=== PATIENT | female | born 1925 | race American Indian/Alaskan Native ===

== ENCOUNTER 2016-12-17 23:10 | Emergency (ER) | payer MEDICARE, MEDICAID ==
[2016-12-17] MEDS ORDERED: Sodium Chloride 0.9% 10 ML Syringe FLUSH PRN (23:18)
[2016-12-17] MEDS ORDERED: Aspirin 325 MG Tab.EC PO ONE (23:27)
--- NOTE | 2016-12-17 23:36 | EDM.PDOC ---
ED HPI GENERAL MEDICAL PROBLEM - General Chief Complaint: Cardiovascular Problem Stated Complaint: [facility] Time Seen by Provider: 12/17/16 23:17 Source of Information: Reports: Patient, EMS, RN Notes Reviewed - History of Present Illness INITIAL COMMENTS - FREE TEXT/NARRATIVE: 89-year-old female comes in after a 10-15 minute episode of chest discomfort at home earlier this evening. She does have history of type 2 diabetes, hypertension and coronary artery disease. She states she had onset of the pain left anterior chest without radiation. She states she has a "kink" of one of the blood vessels in her heart. She took a baby aspirin and states the pain did go away after about 10 or 15 minutes. She has not been short of breath. No nausea vomiting or diaphoresis. She is resting comfortably pain free at this time. - Related Data Allergies Allergy/AdvReac Type Severity Reaction Status Date / Time Penicillins Allergy Rash Verified 12/17/16 23:19 Home Meds: Home Meds Cholecalciferol (Vitamin D3) [Vitamin D3] 1,000 mg PO DAILY 12/17/16 [History] Insulin Glarg,Human.Rec.Analog [LantUS Solostar] 12/17/16 [History] Losartan [Cozaar] 25 mg PO DAILY 12/17/16 [History] Omeprazole 20 mg PO DAILY 12/17/16 [History] SitaGLIPtin [Januvia] 50 mg PO 12/17/16 [History] metFORMIN [Glucophage] 850 mg PO WITHDINNER 12/17/16 [History] ED ROS GENERAL - Review of Systems Review Of Systems: See Below Constitutional: Denies: Fever, Chills, Diaphoresis HEENT: Reports: No Symptoms Respiratory: Denies: Shortness of Breath, Pleuritic Chest Pain Cardiovascular: Reports: Chest Pain (Gone) GI/Abdominal: Denies: Abdominal Pain, Nausea, Vomiting Musculoskeletal: Denies: Neck Pain, Shoulder Pain, Back Pain, Leg Pain Skin: Reports: No Symptoms Neurological: Reports: No Symptoms ED EXAM, GENERAL - Physical Exam Exam: See Below General Appearance: Alert, No Apparent Distress Throat/Mouth: Normal Inspection, Normal Oropharynx Head: Atraumatic. No: Facial Swelling Neck: Supple, Full Range of Motion, Other (No JVD) Respiratory/Chest: No Respiratory Distress, Lungs Clear, Normal Breath Sounds Cardiovascular: Regular Rate, Rhythm GI/Abdominal: Soft, Non-Tender. No: Guarding Extremities: Normal Inspection. No: Pedal Edema, Leg Pain, Increased Warmth, Redness Neurological: Alert, No Motor/Sensory Deficits Skin Exam: Warm, Dry, Ecchymosis EKG INTERPRETATION EKG Date: 12/17/16 Rhythm: NSR [place]: LAD-left axis deviation P-wave: present QRS: normal ST-T: normal Course - Vital Signs Last Recorded V/S: Last Vital Signs Temp 98.0 F 12/17/16 23:15 Pulse 79 12/17/16 23:49 Resp 18 12/17/16 23:15 BP 201/72 H 12/17/16 23:49 Pulse Ox 98 12/17/16 23:15 - Orders/Labs/Meds Orders: Active Orders 24 hr Category Date Time Status EKG 12 Lead [EKG Documentation Completion] [RC] STAT Care 12/17/16 23:18 Active Peripheral IV Care [RC] . DIRECTED Care 12/17/16 23:19 Active Chest 1V Frontal [CR] Stat Exams 12/17/16 23:18 Taken Sodium Chloride 0.9% [Saline Flush] Med 12/17/16 23:18 Active 10 ml FLUSH ASDIRECTED PRN Peripheral IV Insertion Adult [OM.PC] Stat Oth 12/17/16 23:19 Ordered Medication Orders Sodium Chloride (Saline Flush) 10 ml FLUSH ASDIRECTED PRN PRN Reason: Keep Vein Open Last Admin: 12/17/16 23:49 Dose: 10 ml Labs: Laboratory Tests 12/17/16 12/17/16 12/17/16 Range/Units 23:30 23:30 23:30 WBC 10.09 H (3.98-10.04) K/mm3 RBC 4.46 (3.98-5.22) M/mm3 Hgb 13.0 (11.2-15.7) gm/L Hct 37.9 (34.1-44.9) % MCV 85.0 (79.4-94.8) fl MCH 29.1 (25.6-32.2) pg MCHC 34.3 (32.2-35.5) g/dl RDW Std Deviation 41.5 (36.4-46.3) fL Plt Count 284 (182-369) K/mm3 MPV 9.3 L (9.4-12.3) fl Neut % (Auto) 58.1 (34.0-71.1) % Lymph % (Auto) 29.5 (19.3-51.7) % [place] % (Auto) 8.6 (4.7-12.5) % Eos % (Auto) 3.0 (0.7-5.8) Baso % (Auto) 0.4 (0.1-1.2) % Neut # (Auto) 5.86 (1.56-6.13) K/mm3 Lymph # (Auto) 2.98 (1.18-3.74) K/mm3 [place] # (Auto) 0.87 H (0.24-0.36) K/mm3 Eos # (Auto) 0.30 (0.04-0.36) K/mm3 Baso # (Auto) 0.04 (0.01-0.08) K/mm3 Sodium 129 L (136-145) mEq/L Potassium 4.6 (3.5-5.1) mEq/L Chloride 95 L (98-107) mEq/L Carbon Dioxide 26 (21-32) mEq/L Anion Gap 12.6 (5-15) BUN 17 (7-18) mg/dL Creatinine 0.9 (0.55-1.02) mg/dL Est Cr Clr Drug Dosing 33.52 mL/min Estimated GFR (MDRD) 59 (>60) mL/min BUN/Creatinine Ratio 18.9 H (14-18) Glucose 229 H (83-115) mg/dL Calcium 9.7 (8.5-10.1) mg/dL Total Bilirubin 0.3 (0.2-1.0) mg/dL AST 17 (15-37) U/L ALT 25 (14-59) U/L Alkaline Phosphatase 128 H (46-116) U/L Troponin I < 0.017 (0.00-0.056) ng/mL B-Natriuretic Peptide 96 (0-100) pg/mL Total Protein 7.3 (6.4-8.2) g/dl Albumin 3.3 L (3.4-5.0) g/dl Globulin 4.0 gm/dL Albumin/Globulin Ratio 0.8 L (1-2) 12/18/16 Range/Units 01:30 WBC (3.98-10.04) K/mm3 RBC (3.98-5.22) M/mm3 Hgb (11.2-15.7) gm/L Hct (34.1-44.9) % MCV (79.4-94.8) fl MCH (25.6-32.2) pg MCHC (32.2-35.5) g/dl RDW Std Deviation (36.4-46.3) fL Plt Count (182-369) K/mm3 MPV (9.4-12.3) fl Neut % (Auto) (34.0-71.1) % Lymph % (Auto) (19.3-51.7) % [place] % (Auto) (4.7-12.5) % Eos % (Auto) (0.7-5.8) Baso % (Auto) (0.1-1.2) % Neut # (Auto) (1.56-6.13) K/mm3 Lymph # (Auto) (1.18-3.74) K/mm3 [place] # (Auto) (0.24-0.36) K/mm3 Eos # (Auto) (0.04-0.36) K/mm3 Baso # (Auto) (0.01-0.08) K/mm3 Sodium (136-145) mEq/L Potassium (3.5-5.1) mEq/L Chloride (98-107) mEq/L Carbon Dioxide (21-32) mEq/L Anion Gap (5-15) BUN (7-18) mg/dL Creatinine (0.55-1.02) mg/dL Est Cr Clr Drug Dosing mL/min Estimated GFR (MDRD) (>60) mL/min BUN/Creatinine Ratio (14-18) Glucose (83-115) mg/dL Calcium (8.5-10.1) mg/dL Total Bilirubin (0.2-1.0) mg/dL AST (15-37) U/L ALT (14-59) U/L Alkaline Phosphatase (46-116) U/L Troponin I < 0.017 (0.00-0.056) ng/mL B-Natriuretic Peptide (0-100) pg/mL Total Protein (6.4-8.2) g/dl Albumin (3.4-5.0) g/dl Globulin gm/dL Albumin/Globulin Ratio (1-2) Meds: Medications Generic Name Dose Route Start Last Admin Trade Name Junior PRN Reason Stop Dose Admin Sodium Chloride 10 ml 12/17/16 23:18 12/17/16 23:49 Saline Flush FLUSH 10 ml ASDIRECTED PRN Administration Keep Vein Open Discontinued Medications Generic Name Dose Route Start Last Admin Trade Name Junior PRN Reason Stop Dose Admin Aspirin 325 mg 12/17/16 23:27 12/17/16 23:49 Ecotrin PO 12/17/16 23:28 325 mg NOW ONE Administration Metoprolol Tartrate 50 mg 12/17/16 23:40 12/17/16 23:49 Lopressor PO 12/17/16 23:41 50 mg ONETIME ONE Administration - Re-Assessments/Exams Free Text/Narrative Re-Assessment/Exam: 12/18/16 01:21, patient has been resting comfortably, sinus rhythm, initial labs are good, troponins normal. Due to her living quite a distance from our hospital and what sounds like a cardiac history I am going to do a repeat troponin at this time. Her EKG looked good. Rest x-ray also normal. 12/18/16 02:39. Repeat troponin has come back negative. H. and is sleeping soundly. She continues in sinus rhythm with no ectopy. She is eligible for discharge at this time. However no family member has yet shown up to be with her or to take her home. We will continue to try to contact a daughter that apparently was supposed to be coming here. 12/18/16 05:14. She continues to sleep. No reponse when trying to call family. 12/18/16 07:00 A daughter is on her way but over an hour from Dx[place]. Pt continues to rest pain free, will discharge pt after daughter arrives, discharge instr. as documented. Departure - Departure Time of Disposition: 03:00 Disposition: Home, Self-Care 01 Condition: fair Clinical Impression: Atypical chest pain Instructions: Nonspecific Chest Pain Referrals: PCP,Not In Area [Primary Care Provider] - Forms: ED Department Discharge Additional Instructions: Continue daily aspirin and other medications as prescribed, followup with your regular medical provider in about 3-5 days for recheck. Call for appointment. Return to ED as needed if symptoms worsening in any way - My Orders Last 24 Hours: My Active Orders 12/17/16 23:18 EKG 12 Lead [EKG Documentation Completion] [RC] STAT Chest 1V Frontal [CR] Stat Sodium Chloride 0.9% [Saline Flush] 10 ml FLUSH ASDIRECTED PRN 12/17/16 23:19 Peripheral IV Care [RC] . DIRECTED Peripheral IV Insertion Adult [OM.PC] Stat - Assessment/Plan Last 24 Hours: My Active Orders 12/17/16 23:18 EKG 12 Lead [EKG Documentation Completion] [RC] STAT Chest 1V Frontal [CR] Stat Sodium Chloride 0.9% [Saline Flush] 10 ml FLUSH ASDIRECTED PRN 12/17/16 23:19 Peripheral IV Care [RC] . DIRECTED Peripheral IV Insertion Adult [OM.PC] Stat
[2016-12-17] MEDS ORDERED: Metoprolol Tartrate 50 MG Tab PO ONE (23:40)
[2016-12-18 07:43] VITALS: BP 156/52
--- NOTE | 2016-12-18 09:36 | CR ---
Chest: Portable view of the chest was obtained. Comparison: No previous chest x-ray. Heart size and mediastinum are normal. Lungs are clear. Mild scoliosis is noted within the spine. Previous right shoulder surgery is seen. Impression: 1. Incidental findings. Nothing acute is identified on portable chest x-ray. Diagnostic code #2
== END 2016-12-18 07:40 | disposition home or self-care (01) ==
LOC: JD.ED 23:10
DX: R07.89 Other chest pain (principal); I10 Essential (primary) hypertension; I25.10 Atherosclerotic heart disease of native coronary artery without angina pectoris; E11.9 Type 2 diabetes mellitus without complications; Z79.4 Long term (current) use of insulin; Z79.899 Other long term (current) drug therapy; Z88.0 Allergy status to penicillin
CPT/HCPCS: 36415; 71010; 80053; 83880; 84484; 85025; 93005; 99285; A9270; J7050; 99284

== ENCOUNTER 2016-12-23 15:53 | Inpatient (IN) | payer MEDICARE, MEDICAID ==
--- NOTE | 2016-12-23 16:09 | EDM.PDOC ---
ED HPI GENERAL MEDICAL PROBLEM - General Chief Complaint: Neuro Symptoms/Deficits Stated Complaint: STROKE LIKE SYMPTOMS Time Seen by Provider: 12/23/16 16:01 Source of Information: Reports: Patient, Family History Limitations: Reports: No Limitations - History of Present Illness INITIAL COMMENTS - FREE TEXT/NARRATIVE: The patient was out to eat at [employer] and her daughter was talking to her and she developed left sided facial droop and she could not talk. She was also confused. Her last time known well was 1545 today. Her daughter brought her here in a private vehicle. She came back in a wheelchair. I followed her into the room and the patient was talking now and she had no facial droop that I could tell. Her daughter thought she was still having trouble finding her words. The patient was answering all of my questions. She had a hard time with the date. She denies fever, chills, cough, headache, chest pain, shortness of breath, abdominal pain, nausea, or vomiting. Her daughter says she has had strokes before. Onset: Sudden Duration: Minutes: (Last known well was 1544 today) Severity: Mild Improves with: Reports: None Worsens with: Reports: None Associated Symptoms: Reports: No Other Symptoms - Related Data Allergies Allergy/AdvReac Type Severity Reaction Status Date / Time Penicillins Allergy Rash Verified 12/23/16 16:02 Home Meds: Home Meds Cholecalciferol (Vitamin D3) [Vitamin D3] 1,000 mg PO DAILY 12/17/16 [History] Insulin Glarg,Human.Rec.Analog [LantUS Solostar] 18 unit SQ BEDTIME 12/17/16 [ History] Losartan [Cozaar] 25 mg PO DAILY 12/17/16 [History] Omeprazole 20 mg PO DAILY 12/17/16 [History] SitaGLIPtin [Januvia] 50 mg PO DAILY 12/17/16 [History] metFORMIN [Glucophage] 850 mg PO WITHDINNER 12/17/16 [History] Allopurinol [Zyloprim] 100 mg PO DAILY 12/23/16 [History] Clopidogrel [Plavix] 75 mg PO DAILY 12/23/16 [History] Past Medical History Cardiovascular History: Reports: Hypertension, [place] Neurological History: Reports: CVA Endocrine/Metabolic History: Reports: Diabetes, Type II - Past Surgical History GI Surgical History: Reports: Appendectomy Female Surgical History: Reports: Hysterectomy, Ureteral Stent Other Female Surgeries/Procedures: 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 Social & Family History - Family History Family Medical History: Noncontributory - Tobacco Use Smoking Status *Q: Never Smoker - Recreational Drug Use Recreational Drug Use: No ED ROS GENERAL - Review of Systems Review Of Systems: See Below Constitutional: Reports: No Symptoms HEENT: Reports: No Symptoms Respiratory: Reports: No Symptoms Cardiovascular: Reports: No Symptoms Endocrine: Reports: No Symptoms GI/Abdominal: Reports: No Symptoms : Reports: No Symptoms Musculoskeletal: Reports: No Symptoms Skin: Reports: No Symptoms Neurological: Reports: Confusion, Other (Left sided facial droop and trouble speaking) Psychiatric: Reports: No Symptoms ED EXAM, NEURO - Physical Exam Exam: See Below Exam Limited By: No Limitations General Appearance: Alert, No Apparent Distress Eye Exam: Bilateral Eye: EOMI, PERRL Ears: Normal External Exam Nose: Normal Inspection Throat/Mouth: Normal Inspection Head Exam: Atraumatic, Normocephalic Neck: Normal Inspection Respiratory/Chest: No Respiratory Distress, Lungs Clear, Normal Breath Sounds Cardiovascular: Regular Rate, Rhythm, No Edema, No Murmur GI/Abdominal: Soft, Non-Tender, No Organomegaly, No Mass Neurological: Alert, CN II-XII Intact, No Motor/Sensory Deficits, Oriented x 3 Back Exam: Normal Inspection Extremities: Normal Inspection Skin Exam: Warm, Dry EKG INTERPRETATION EKG Date: 12/23/16 Time: 15:58 Rhythm: NSR Rate (beats/min): 83 [place]: normal P-wave: present QRS: normal ST-T: normal QT: normal Course - Vital Signs Last Recorded V/S: Last Vital Signs Temp 96.8 F 12/23/16 15:57 Pulse 84 12/23/16 15:57 Resp 16 12/23/16 15:57 BP 178/64 H 12/23/16 15:57 Pulse Ox 97 12/23/16 15:57 - Orders/Labs/Meds Orders: Active Orders 24 hr Category Date Time Status Cardiac Monitoring [RC] . DIRECTED Care 12/23/16 16:01 Active EKG Documentation Completion [RC] STAT Care 12/23/16 16:02 Active Oxygen Therapy [RC] PRN Care 12/23/16 16:01 Active Peripheral IV Care [RC] . DIRECTED Care 12/23/16 16:02 Active Head wo Cont [CT] Stat Exams 12/23/16 16:02 Taken Sodium Chloride 0.9% [Saline Flush] Med 12/23/16 16:01 Active 10 ml FLUSH ASDIRECTED PRN Peripheral IV Insertion Adult [OM.PC] Stat Oth 12/23/16 16:01 Ordered Medication Orders Sodium Chloride (Saline Flush) 10 ml FLUSH ASDIRECTED PRN PRN Reason: Keep Vein Open Last Admin: 12/23/16 16:20 Dose: 10 ml Labs: Laboratory Tests 12/23/16 12/23/16 12/23/16 Range/Units 16:00 16:00 16:00 WBC 12.12 H (3.98-10.04) K/mm3 RBC 4.50 (3.98-5.22) M/mm3 Hgb 13.1 (11.2-15.7) gm/L Hct 37.6 (34.1-44.9) % MCV 83.6 (79.4-94.8) fl MCH 29.1 (25.6-32.2) pg MCHC 34.8 (32.2-35.5) g/dl RDW Std Deviation 40.1 (36.4-46.3) fL Plt Count 331 (182-369) K/mm3 MPV 9.3 L (9.4-12.3) fl Neut % (Auto) 61.7 (34.0-71.1) % Lymph % (Auto) 27.0 (19.3-51.7) % [place] % (Auto) 8.2 (4.7-12.5) % Eos % (Auto) 2.4 (0.7-5.8) Baso % (Auto) 0.4 (0.1-1.2) % Neut # (Auto) 7.48 H (1.56-6.13) K/mm3 Lymph # (Auto) 3.27 (1.18-3.74) K/mm3 [place] # (Auto) 0.99 H (0.24-0.36) K/mm3 Eos # (Auto) 0.29 (0.04-0.36) K/mm3 Baso # (Auto) 0.05 (0.01-0.08) K/mm3 PT 10.0 (8.0-13.0) SECONDS INR 0.92 APTT 28 (22-36) SECONDS Sodium 124 L (136-145) mEq/L Potassium 4.7 (3.5-5.1) mEq/L Chloride 91 L (98-107) mEq/L Carbon Dioxide 23 (21-32) mEq/L Anion Gap 14.7 (5-15) BUN 22 H (7-18) mg/dL Creatinine 1.0 (0.55-1.02) mg/dL Est Cr Clr Drug Dosing TNP Estimated GFR (MDRD) 52 (>60) mL/min BUN/Creatinine Ratio 22.0 H (14-18) Glucose 143 H (83-115) mg/dL Calcium 9.4 (8.5-10.1) mg/dL Total Bilirubin 0.4 (0.2-1.0) mg/dL AST 22 (15-37) U/L ALT 26 (14-59) U/L Alkaline Phosphatase 86 (46-116) U/L Troponin I < 0.017 (0.00-0.056) ng/mL Total Protein 7.3 (6.4-8.2) g/dl Albumin 3.5 (3.4-5.0) g/dl Globulin 3.8 gm/dL Albumin/Globulin Ratio 0.9 L (1-2) Urine Color (Yellow) Urine Appearance (Clear) Urine pH (5.0-8.0) Ur Specific [place] (1.005-1.030) Urine Protein (Negative) Urine Glucose (UA) (Negative) Urine Ketones (Negative) Urine Occult Blood (Negative) Urine Nitrite (Negative) Urine Bilirubin (Negative) Urine Urobilinogen (0.2-1.0) Ur Leukocyte Esterase (Negative) Urine RBC (0-5) /hpf Urine WBC (0-5) /hpf Ur Epithelial Cells (0-5) /hpf Urine Bacteria (FEW) /hpf Hyaline Casts (0-5) /lpf Urine Mucus (FEW) /hpf 12/23/ Range/Units 16:30 WBC (3.98-10.04) K/mm3 RBC (3.98-5.22) M/mm3 Hgb (11.2-15.7) gm/L Hct (34.1-44.9) % MCV (79.4-94.8) fl MCH (25.6-32.2) pg MCHC (32.2-35.5) g/dl RDW Std Deviation (36.4-46.3) fL Plt Count (182-369) K/mm3 MPV (9.4-12.3) fl Neut % (Auto) (34.0-71.1) % Lymph % (Auto) (19.3-51.7) % [place] % (Auto) (4.7-12.5) % Eos % (Auto) (0.7-5.8) Baso % (Auto) (0.1-1.2) % Neut # (Auto) (1.56-6.13) K/mm3 Lymph # (Auto) (1.18-3.74) K/mm3 [place] # (Auto) (0.24-0.36) K/mm3 Eos # (Auto) (0.04-0.36) K/mm3 Baso # (Auto) (0.01-0.08) K/mm3 PT (8.0-13.0) SECONDS INR APTT (22-36) SECONDS Sodium (136-145) mEq/L Potassium (3.5-5.1) mEq/L Chloride (98-107) mEq/L Carbon Dioxide (21-32) mEq/L Anion Gap (5-15) BUN (7-18) mg/dL Creatinine (0.55-1.02) mg/dL Est Cr Clr Drug Dosing Estimated GFR (MDRD) (>60) mL/min BUN/Creatinine Ratio (14-18) Glucose (83-115) mg/dL Calcium (8.5-10.1) mg/dL Total Bilirubin (0.2-1.0) mg/dL AST (15-37) U/L ALT (14-59) U/L Alkaline Phosphatase (46-116) U/L Troponin I (0.00-0.056) ng/mL Total Protein (6.4-8.2) g/dl Albumin (3.4-5.0) g/dl Globulin gm/dL Albumin/Globulin Ratio (1-2) Urine Color Yellow (Yellow) Urine Appearance Slt cloudy H (Clear) Urine pH 6.0 (5.0-8.0) Ur Specific [place] 1.015 (1.005-1.030) Urine Protein Negative (Negative) Urine Glucose (UA) Negative (Negative) Urine Ketones Negative (Negative) Urine Occult Blood Negative (Negative) Urine Nitrite Negative (Negative) Urine Bilirubin Negative (Negative) Urine Urobilinogen 0.2 (0.2-1.0) Ur Leukocyte Esterase Negative (Negative) Urine RBC 0-5 (0-5) /hpf Urine WBC 0-5 (0-5) /hpf Ur Epithelial Cells Not seen (0-5) /hpf Urine Bacteria Few (FEW) /hpf Hyaline Casts 0-5 (0-5) /lpf Urine Mucus Not seen (FEW) /hpf Meds: Medications Generic Name Dose Route Start Last Admin Trade Name Freq PRN Reason Stop Dose Admin Sodium Chloride 10 ml 12/23/16 16:01 12/23/16 16:20 Saline Flush FLUSH 10 ml ASDIRECTED PRN Administration Keep Vein Open - Re-Assessments/Exams Free Text/Narrative Re-Assessment/Exam: 12/23/16 16:13 A stroke alert was called. I followed the patient into the room. He last time known well was 1545. I ordered an IV saline lock, labs, EKG, and CT of the head. 12/23/16 17:08 Her EKG shows a NSR at a rate of 83. There are no acute changes. The CT of her head shows no acute intracranial process. Senescent changes of the brain are present. Chronic left cerebellar hemispheric infarcts. Her WBC is elevated at 12.12. Her PT, INR, and PTT are negative. Her Na is low at 124. Her glucose is a little elevated at 143. Her troponin is negative. Her UA shows no UTI. She is back to her baseline. I feels she needs to be admitted for TIA and hyponatremia. I talked to her about code status and she wishes to be do not resuscitate. I called Dr Zhao and he agreed to the admission. Departure - Departure Time of Disposition: 17:55 Disposition: Admitted As Inpatient 68 Condition: good Clinical Impression: Hyponatremia TIA (transient ischemic attack) Qualifiers: Transient cerebral ischemia type: unspecified Qualified Code(s): G45.9 - Transient cerebral ischemic attack, unspecified - Discharge Information Forms: ED Department Discharge - My Orders Last 24 Hours: My Active Orders 12/23/16 16:01 Cardiac Monitoring [RC] . DIRECTED Oxygen Therapy [RC] PRN Sodium Chloride 0.9% [Saline Flush] 10 ml FLUSH ASDIRECTED PRN Peripheral IV Insertion Adult [OM.PC] Stat 12/23/16 16:02 EKG Documentation Completion [RC] STAT Peripheral IV Care [RC] . DIRECTED Head wo Cont [CT] Stat - Assessment/Plan Last 24 Hours: My Active Orders 12/23/16 16:01 Cardiac Monitoring [RC] . DIRECTED Oxygen Therapy [RC] PRN Sodium Chloride 0.9% [Saline Flush] 10 ml FLUSH ASDIRECTED PRN Peripheral IV Insertion Adult [OM.PC] Stat 12/23/16 16:02 EKG Documentation Completion [RC] STAT Peripheral IV Care [RC] . DIRECTED Head wo Cont [CT] Stat
[2016-12-23] MEDS: Sodium Chloride 0.9% 10 ML Syringe FLUSH PRN (16:20)
--- NOTE | 2016-12-23 18:38 | PCM.HP ---
H&P History of Present Illness - General Date of Service: 12/23/16 Admit Problem/Dx: TIA Source of Information: Patient, Family, Provider, RN Notes Reviewed History Limitations: Reports: No Limitations - History of Present Illness Initial Comments - Free Text/Narative: This is an 89 yo elderly white female with past medical hx/o DM2, HTN, GERD and Vit D Deficiency who comes in with complaints of left sided facial droop and difficulty speaking. Her presenting symptoms were associated with confusion. Patient was last known okay at about 1545. Patient carries hx/o a few/multiple stroke in the past. Upon presentation to ED , appeared he symptoms have completely resolved. No other associated symptoms reported. Her initial work up in ED shows a CBC remarkable for WBC of 12.12 and Neutrophils of 7.48. Her chemistry is significant for Na of 124, Cl 91, BUN of 22, BS of 143. Her INR is 0.92 and Troponin x1 is normal. UA is negative for UTI. Initial EKG shows NSR. Her Head CT scan shows no acute intra-cranial abnormality. Patient is being admitted for TIA and Hyponatremia. She is CPR only - Related Data Allergies/Adverse Reactions: Allergies Allergy/AdvReac Type Severity Reaction Status Date / Time Penicillins Allergy Rash Verified 12/23/16 16:02 Home Medications: Home Meds Cholecalciferol (Vitamin D3) [Vitamin D3] 1,000 mg PO DAILY 12/17/16 [History] Insulin Glarg,Human.Rec.Analog [LantUS Solostar] 18 unit SQ BEDTIME 12/17/16 [ History] Losartan [Cozaar] 25 mg PO DAILY 12/17/16 [History] Omeprazole 20 mg PO DAILY 12/17/16 [History] SitaGLIPtin [Januvia] 50 mg PO DAILY 12/17/16 [History] metFORMIN [Glucophage] 850 mg PO WITHDINNER 12/17/16 [History] Allopurinol [Zyloprim] 100 mg PO DAILY 12/23/16 [History] Clopidogrel [Plavix] 75 mg PO DAILY 12/23/16 [History] Past Medical History Cardiovascular History: Reports: Hypertension, SD Other Cardiovascular History: Myocardial Bridge Neurological History: Reports: CVA Endocrine/Metabolic History: Reports: Diabetes, Type II - Past Surgical History GI Surgical History: Reports: Appendectomy Female Surgical History: Reports: Hysterectomy, Ureteral Stent Other Female Surgeries/Procedures: 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 Social & Family History - Family History Family Medical History: Noncontributory - Tobacco Use Smoking Status *Q: Never Smoker - Recreational Drug Use Recreational Drug Use: No H&P Review of Systems - Review of Systems: Review Of Systems: See Below General: Denies: Fever, Chills, Malaise, Weakness, Fatigue HEENT: Reports: No Symptoms Pulmonary: Denies: Shortness of Breath Cardiovascular: Denies: Chest Pain, Palpitations, Dyspnea on Exertion, Lightheadedness Gastrointestinal: Denies: Abdominal Pain, Constipation, Diarrhea, Nausea, Vomiting Genitourinary: Reports: No Symptoms Musculoskeletal: Reports: No Symptoms Skin: Reports: No Symptoms Psychiatric: Denies: Depression, Mood Lability, Anxiety, Agitation, Hallucinations, Suicidal Ideation Neurological: Reports: Confusion, Other (left sided facial droop and dysarthria ) Hematologic/Lymphatic: Reports: No Symptoms Immunologic: Reports: No Symptoms Exam - Exam Exam: See Below - Vital Signs Vital Signs: Last Vital Signs Temp 36.0 C 12/23/16 15:57 Pulse 84 12/23/16 15:57 Resp 16 12/23/16 15:57 BP 178/64 H 12/23/16 15:57 Pulse Ox 97 12/23/16 15:57 Weight: 57.153 kg - Exam General: Alert, Oriented, Cooperative, Mild Distress HEENT: Conjunctiva Clear, EACs Clear, EOMI, Mucosa Moist & [place], Nares Patent, Normal Nasal Septum, Posterior Pharynx Clear, Pupils Equal, Pupils Reactive. No : Hearing Intact Neck: Supple, Trachea Midline, +2 Carotid Pulse wo Bruit, Full Range of Motion. No: JVD Lungs: Clear to Auscultation, Normal Respiratory Effort Cardiovascular: Regular Rate, Regular Rhythm Abdomen: Normal Bowel Sounds, Soft. No: Organomegaly, Tenderness (Female) Exam: Deferred Rectal (Female) Exam: Deferred Back Exam: Normal Inspection, Decreased Range of Motion Extremities: Normal Inspection, Normal Pulses Peripheral Pulses: 2+: Posterior Tibial (L), Posterior Tibial (R), Dorsalis Pedis (L), Dorsalis Pedis (R) Skin: Warm, Dry, Intact, Ecchymosis Neuro Extensive - Mental Status: Oriented x3, Normal Cognition, Memory Intact Neuro Extensive - Motor, Sensory, Reflexes: CN II-XII Intact Psychiatric: Alert, Normal Affect, Normal Mood - Patient Data Lab Results last 24 hrs: Laboratory Results - last 24 hr 12/23/16 12/23/16 12/23/16 Range/Units 16:00 16:00 16:00 WBC 12.12 H (3.98-10.04) K/mm3 RBC 4.50 (3.98-5.22) M/mm3 Hgb 13.1 (11.2-15.7) gm/L Hct 37.6 (34.1-44.9) % MCV 83.6 (79.4-94.8) fl MCH 29.1 (25.6-32.2) pg MCHC 34.8 (32.2-35.5) g/dl RDW Std Deviation 40.1 (36.4-46.3) fL Plt Count 331 (182-369) K/mm3 MPV 9.3 L (9.4-12.3) fl Neut % (Auto) 61.7 (34.0-71.1) % Lymph % (Auto) 27.0 (19.3-51.7) % [place] % (Auto) 8.2 (4.7-12.5) % Eos % (Auto) 2.4 (0.7-5.8) Baso % (Auto) 0.4 (0.1-1.2) % Neut # (Auto) 7.48 H (1.56-6.13) K/mm3 Lymph # (Auto) 3.27 (1.18-3.74) K/mm3 [place] # (Auto) 0.99 H (0.24-0.36) K/mm3 Eos # (Auto) 0.29 (0.04-0.36) K/mm3 Baso # (Auto) 0.05 (0.01-0.08) K/mm3 PT 10.0 (8.0-13.0) SECONDS INR 0.92 APTT 28 (22-36) SECONDS Sodium 124 L (136-145) mEq/L Potassium 4.7 (3.5-5.1) mEq/L Chloride 91 L (98-107) mEq/L Carbon Dioxide 23 (21-32) mEq/L Anion Gap 14.7 (5-15) BUN 22 H (7-18) mg/dL Creatinine 1.0 (0.55-1.02) mg/dL Est Cr Clr Drug Dosing TNP Estimated GFR (MDRD) 52 (>60) mL/min BUN/Creatinine Ratio 22.0 H (14-18) Glucose 143 H (83-115) mg/dL Calcium 9.4 (8.5-10.1) mg/dL Total Bilirubin 0.4 (0.2-1.0) mg/dL AST 22 (15-37) U/L ALT 26 (14-59) U/L Alkaline Phosphatase 86 (46-116) U/L Troponin I < 0.017 (0.00-0.056) ng/mL Total Protein 7.3 (6.4-8.2) g/dl Albumin 3.5 (3.4-5.0) g/dl Globulin 3.8 gm/dL Albumin/Globulin Ratio 0.9 L (1-2) Urine Color (Yellow) Urine Appearance (Clear) Urine pH (5.0-8.0) Ur Specific [place] (1.005-1.030) Urine Protein (Negative) Urine Glucose (UA) (Negative) Urine Ketones (Negative) Urine Occult Blood (Negative) Urine Nitrite (Negative) Urine Bilirubin (Negative) Urine Urobilinogen (0.2-1.0) Ur Leukocyte Esterase (Negative) Urine RBC (0-5) /hpf Urine WBC (0-5) /hpf Ur Epithelial Cells (0-5) /hpf Urine Bacteria (FEW) /hpf Hyaline Casts (0-5) /lpf Urine Mucus (FEW) /hpf // Range/Units 16:30 WBC (3.98-10.04) K/mm3 RBC (3.98-5.22) M/mm3 Hgb (11.2-15.7) gm/L Hct (34.1-44.9) % MCV (79.4-94.8) fl MCH (25.6-32.2) pg MCHC (32.2-35.5) g/dl RDW Std Deviation (36.4-46.3) fL Plt Count (182-369) K/mm3 MPV (9.4-12.3) fl Neut % (Auto) (34.0-71.1) % Lymph % (Auto) (19.3-51.7) % [place] % (Auto) (4.7-12.5) % Eos % (Auto) (0.7-5.8) Baso % (Auto) (0.1-1.2) % Neut # (Auto) (1.56-6.13) K/mm3 Lymph # (Auto) (1.18-3.74) K/mm3 [place] # (Auto) (0.24-0.36) K/mm3 Eos # (Auto) (0.04-0.36) K/mm3 Baso # (Auto) (0.01-0.08) K/mm3 PT (8.0-13.0) SECONDS INR APTT (22-36) SECONDS Sodium (136-145) mEq/L Potassium (3.5-5.1) mEq/L Chloride (98-107) mEq/L Carbon Dioxide (21-32) mEq/L Anion Gap (5-15) BUN (7-18) mg/dL Creatinine (0.55-1.02) mg/dL Est Cr Clr Drug Dosing Estimated GFR (MDRD) (>60) mL/min BUN/Creatinine Ratio (14-18) Glucose (83-115) mg/dL Calcium (8.5-10.1) mg/dL Total Bilirubin (0.2-1.0) mg/dL AST (15-37) U/L ALT (14-59) U/L Alkaline Phosphatase (46-116) U/L Troponin I (0.00-0.056) ng/mL Total Protein (6.4-8.2) g/dl Albumin (3.4-5.0) g/dl Globulin gm/dL Albumin/Globulin Ratio (1-2) Urine Color Yellow (Yellow) Urine Appearance Slt cloudy H (Clear) Urine pH 6.0 (5.0-8.0) Ur Specific [place] 1.015 (1.005-1.030) Urine Protein Negative (Negative) Urine Glucose (UA) Negative (Negative) Urine Ketones Negative (Negative) Urine Occult Blood Negative (Negative) Urine Nitrite Negative (Negative) Urine Bilirubin Negative (Negative) Urine Urobilinogen 0.2 (0.2-1.0) Ur Leukocyte Esterase Negative (Negative) Urine RBC 0-5 (0-5) /hpf Urine WBC 0-5 (0-5) /hpf Ur Epithelial Cells Not seen (0-5) /hpf Urine Bacteria Few (FEW) /hpf Hyaline Casts 0-5 (0-5) /lpf Urine Mucus Not seen (FEW) /hpf Result Diagrams: 12/23/16 16:00 12/23/16 16:00 EKG INTERPRETATION EKG Date: 12/23/16 Time: 15:58 Rhythm: NSR Rate (beats/min): 83 [place]: normal P-wave: present QRS: normal ST-T: normal QT: normal *Q Meaningful Use (ADM) - VTE *Q VTE Criteria *Q: - Stroke *Q Stroke Criteria *Q: - AMI *Q AMI Criteria *Q: Problem List Initiated/Reviewed/Updated: Yes Orders Last 24hrs: Active Orders 24 hr Category Date Time Status Cardiac Monitoring [RC] . DIRECTED Care 12/23/16 16:01 Active EKG Documentation Completion [RC] STAT Care 12/23/16 16:02 Active Oxygen Therapy [RC] PRN Care 12/23/16 16:01 Active Peripheral IV Care [RC] . DIRECTED Care 12/23/16 16:02 Active Head wo Cont [CT] Stat Exams 12/23/16 16:02 Taken Sodium Chloride 0.9% [Saline Flush] Med 12/23/16 16:01 Active 10 ml FLUSH ASDIRECTED PRN Peripheral IV Insertion Adult [OM.PC] Stat Oth 12/23/16 16:01 Ordered Medication Orders Sodium Chloride (Saline Flush) 10 ml FLUSH ASDIRECTED PRN PRN Reason: Keep Vein Open Last Admin: 12/23/16 16:20 Dose: 10 ml Assessment/Plan Comment:: Assessment/Plan: Acute: TIA - Head CT scan - negative for acute intra-cranial abnormality, senescent changes, chronic left cerebellar hemisphere infarct - Risk factors: Previous CVAs/Stroke - EKG: no malignant rhythm - Carotids: could not appreciate bruits - BPS fairly stable - She is now back to her baseline - Not on ASA/Statin, will give 325 po ASA if not gotten any in ED - Brain MRI, Head and /Neck MRA, Carotid Studies, 2D Echo in AM - Lipid Panel and A1C in AM Moderate Hyponatremia - NA is 124 - She is euvolemic - She is not on SSRI or HCTZ - Thyroid panel in AM - Serum and Urine Osm - Will start salt tablet TID Mild Leukoctyosis - Likely from stress - WBC is 12 - UA is neg and afebrile - Will monitor Chronic: HTN DM2 GERD Gout Vit D deficiency Plan: Admit to the floor with Telemetry Resume Home Meds Routine AM labs Fall/Seizure Precautions PRN Abortive Seizure Med NIH/Neuro Monitoring Qshift PT/OT consult Bedside swallowing study, if okay to start diet AHA and DM diet Accu-check QID AC and Bedtime SW/CM for d/c planning Code status: CPR only
[2016-12-23] MEDS ORDERED: HYDROmorphone 0.5 MG/0.5 ML Syringe IVPUSH PRN (19:09)
[2016-12-23] MEDS ORDERED: Acetaminophen 325 MG Tab PO PRN (19:09)
[2016-12-23] MEDS ORDERED: Bisacodyl 5 MG Tab PO PRN (19:09)
[2016-12-23] MEDS ORDERED: Albuterol 0.083% 2.5 MG/3 ML Neb Soln NEB PRN (19:09)
[2016-12-23] MEDS ORDERED: LORazepam 2 MG/ML MDV IV PRN (19:09)
[2016-12-23] MEDS ORDERED: Acetaminophen/HYDROcodone 325-5 MG Tab PO PRN (19:09)
[2016-12-23] MEDS ORDERED: Docusate Sodium 100 MG Cap PO PRN (19:09)
[2016-12-23] MEDS ORDERED: Ondansetron 4 MG/2 ML SDV IV PRN (19:09)
[2016-12-23] MEDS ORDERED: Polyethylene Glycol 3350 Powder 17 GM Packet PO PRN (19:09)
[2016-12-23] MEDS ORDERED: Promethazine 12.5 MG in Sodium Chloride 0.9% 50 ML IV PRN (19:09)
[2016-12-23] MEDS ORDERED: Aspirin 81 MG Tab.Chew PO SCH (19:15)
[2016-12-23] MEDS ORDERED: Aspirin 325 MG Tab.EC PO ONE (19:22)
[2016-12-23] MEDS ORDERED: Aspirin 81 MG Tab.EC PO ONE (22:29)
[2016-12-23] MEDS: Insulin Detemir 100 Units/ML 3 ML Pen SUBCUT SCH (23:01)
[2016-12-23] MEDS: Temazepam 15 MG Cap PO PRN (23:05)
[2016-12-24] MEDS ORDERED: Magnesium Sulfate/Water 2 GM in Premix Bag 1 BAG IV ONE (07:46)
[2016-12-24] MEDS: Potassium Chloride/Sodium Chloride Tab PO SCH ×4 (08:03→20:19)
[2016-12-24] MEDS: Clopidogrel 75 MG Tab PO SCH (08:28)
[2016-12-24] MEDS: Pantoprazole 40 MG Tab.CR PO SCH (08:28)
[2016-12-24] MEDS: Cholecalciferol (Vitamin D3) 1,000 Unit Tab PO SCH (08:28)
[2016-12-24] MEDS: Allopurinol 100 MG Tab PO SCH (08:28)
[2016-12-24] MEDS: Losartan 25 MG Tab PO SCH (08:29)
[2016-12-24] MEDS: Insulin Detemir 100 Units/ML 3 ML Pen SUBCUT SCH ×2 (08:30→20:19)
--- NOTE | 2016-12-24 08:46 | PCM.PN ---
- General Info Date of Service: 12/24/16 Admission Dx/Problem (Free Text): TIA Mehreen is seen this morning sitting up in chair. She is about to go to radiology for further studies: MRI/MRA of brain/carotids She is doing well, ate breakfast, denies c/o pain, dizziness, CP, SOB, palpitations or ABRAHAM. States slept well overnight. Functional Status: Reports: pain controlled, tolerating diet, urinating - Review of Systems General: Reports: No Symptoms. Denies: Weakness HEENT: Reports: no symptoms Pulmonary: Reports: no symptoms. Denies: cough Cardiovascular: Reports: No Symptoms. Denies: Chest Pain, Palpitations Gastrointestinal: Reports: No symptoms Genitourinary: Reports: no symptoms Musculoskeletal: Reports: no symptoms Neurological: Reports: Confusion (pleasantly confused). Denies: Dizziness, Headache, Numbness, Tingling, Trouble Speaking, Change in Speech Psychiatric: Reports: confusion (pleasantly confused) - Patient Data Vitals - most recent: Last Vital Signs Temp 97.5 F 12/24/16 07:50 Pulse 66 12/24/16 07:50 Resp 14 12/24/16 07:50 BP 115/71 12/24/16 08:29 Pulse Ox 99 12/24/16 07:50 Weight - most recent: 123 lb 9.6 oz I&O - last 24 hours: Intake & Output 12/23/16 12/24/16 12/24/16 22:59 06:59 14:59 Intake Total 100 Output Total 300 Balance -200 Lab Results last 24 hrs: Laboratory Results - last 24 hr 12/23/16 12/24/16 12/24/16 Range/Units 22:59 05:19 05:19 WBC 8.73 (3.98-10.04) K/mm3 RBC 4.28 (3.98-5.22) M/mm3 Hgb 12.4 (11.2-15.7) gm/L Hct 36.2 (34.1-44.9) % MCV 84.6 (79.4-94.8) fl MCH 29.0 (25.6-32.2) pg MCHC 34.3 (32.2-35.5) g/dl RDW Std Deviation 39.9 (36.4-46.3) fL Plt Count 312 (182-369) K/mm3 MPV 9.6 (9.4-12.3) fl Neut % (Auto) 55.4 (34.0-71.1) % Lymph % (Auto) 30.7 (19.3-51.7) % [place] % (Auto) 10.5 (4.7-12.5) % Eos % (Auto) 2.9 (0.7-5.8) Baso % (Auto) 0.2 (0.1-1.2) % Neut # (Auto) 4.83 (1.56-6.13) K/mm3 Lymph # (Auto) 2.68 (1.18-3.74) K/mm3 [place] # (Auto) 0.92 H (0.24-0.36) K/mm3 Eos # (Auto) 0.25 (0.04-0.36) K/mm3 Baso # (Auto) 0.02 (0.01-0.08) K/mm3 Sodium 129 L (136-145) mEq/L Potassium 4.3 (3.5-5.1) mEq/L Chloride 95 L (98-107) mEq/L Carbon Dioxide 26 (21-32) mEq/L Anion Gap 12.3 (5-15) BUN 21 H (7-18) mg/dL Creatinine 1.0 (0.55-1.02) mg/dL Est Cr Clr Drug Dosing 30.16 mL/min Estimated GFR (MDRD) 52 (>60) mL/min BUN/Creatinine Ratio 21.0 H (14-18) Glucose 151 H (83-115) mg/dL POC Glucose 255 H (83-110) mg/dL Serum Osmolality 278 L (280-300) mosm/kg Calcium 9.3 (8.5-10.1) mg/dL Magnesium 1.6 L (1.8-2.4) mg/dl Triglycerides 207 H (<150) mg/dL Cholesterol 193 (<200) mg/dL LDL Cholesterol Direct 134 H* (<100) mg/dL HDL Cholesterol 36.0 L (40-59) mg/dL Free T4 1.38 (0.76-1.46) ng/dL TSH 3rd Generation 2.056 (0.358-3.74) uIU/mL 12/24/16 Range/Units 06:21 WBC (3.98-10.04) K/mm3 RBC (3.98-5.22) M/mm3 Hgb (11.2-15.7) gm/L Hct (34.1-44.9) % MCV (79.4-94.8) fl MCH (25.6-32.2) pg MCHC (32.2-35.5) g/dl RDW Std Deviation (36.4-46.3) fL Plt Count (182-369) K/mm3 MPV (9.4-12.3) fl Neut % (Auto) (34.0-71.1) % Lymph % (Auto) (19.3-51.7) % [place] % (Auto) (4.7-12.5) % Eos % (Auto) (0.7-5.8) Baso % (Auto) (0.1-1.2) % Neut # (Auto) (1.56-6.13) K/mm3 Lymph # (Auto) (1.18-3.74) K/mm3 [place] # (Auto) (0.24-0.36) K/mm3 Eos # (Auto) (0.04-0.36) K/mm3 Baso # (Auto) (0.01-0.08) K/mm3 Sodium (136-145) mEq/L Potassium (3.5-5.1) mEq/L Chloride (98-107) mEq/L Carbon Dioxide (21-32) mEq/L Anion Gap (5-15) BUN (7-18) mg/dL Creatinine (0.55-1.02) mg/dL Est Cr Clr Drug Dosing mL/min Estimated GFR (MDRD) (>60) mL/min BUN/Creatinine Ratio (14-18) Glucose (83-115) mg/dL POC Glucose 157 H (83-110) mg/dL Serum Osmolality (280-300) mosm/kg Calcium (8.5-10.1) mg/dL Magnesium (1.8-2.4) mg/dl Triglycerides (<150) mg/dL Cholesterol (<200) mg/dL LDL Cholesterol Direct (<100) mg/dL HDL Cholesterol (40-59) mg/dL Free T4 (0.76-1.46) ng/dL TSH 3rd Generation (0.358-3.74) uIU/mL Med Orders - Current: Current Medications Acetaminophen (Tylenol) 650 mg PO Q4H PRN PRN Reason: Pain (Mild 1-3)/fever Hydrocodone Bitart/Acetaminophen ([place] 325-5 Mg) 1 tab PO Q4H PRN PRN Reason: Pain (moderate 4-6) Last Admin: 12/23/16 23:05 Dose: 1 tab Albuterol (Proventil Neb Soln) 2.5 mg NEB Q2H PRN PRN Reason: Shortness Of Breath/wheezing Allopurinol (Zyloprim) 100 mg PO DAILY [facility] Last Admin: 12/24/16 08:28 Dose: 100 mg Bisacodyl (Dulcolax) 5 mg PO DAILY PRN PRN Reason: Constipation Cholecalciferol (Vitamin D3) 1,000 units PO DAILY [facility] Last Admin: 12/24/16 08:28 Dose: 1,000 units Clopidogrel Bisulfate (Plavix) 75 mg PO DAILY [facility] Last Admin: 12/24/16 08:28 Dose: 75 mg Docusate Sodium (Colace) 100 mg PO BID PRN PRN Reason: Constipation Hydromorphone HCl (Dilaudid) 0.25 mg IVPUSH Q2H PRN PRN Reason: Pain (severe 7-10) Promethazine HCl 12.5 mg/ (Sodium Chloride) 50.5 mls @ 100 mls/hr IV Q6H PRN PRN Reason: Nausea/Vomiting Magnesium Sulfate 2 gm/ Premix 50 mls @ 25 mls/hr IV ONETIME ONE Stop: 12/24/16 09:45 Last Admin: 12/24/16 08:34 Dose: 25 mls/hr Insulin Detemir (Levemir) 9 unit SUBCUT BID [facility] Last Admin: 12/24/16 08:30 Dose: 18 units Lorazepam (Ativan) 0.25 mg IV Q6H PRN PRN Reason: Anxiety Losartan Potassium (Cozaar) 25 mg PO DAILY [facility] Last Admin: 12/24/16 08:29 Dose: 25 mg Metformin HCl (Glucophage) [facility] Ondansetron [facility] (Zofran) 4 mg IV Q6H PRN PRN Reason: Nausea/Vomiting Oral Electrolytes (Thermotabs) 2 each PO TID [facility] Last Admin: 12/24/16 08:28 Dose: 2 each Pantoprazole Sodium (Protonix) 40 mg PO DAILY [facility] Last Admin: 12/24/16 08:28 Dose: 40 mg Polyethylene Glycol (Miralax) 17 gm PO DAILY PRN PRN Reason: Constipation Senna/Docusate Sodium (Senna Plus) 1 tab PO BID PRN PRN Reason: Constipation Sitagliptin Phosphate (Januvia) 50 mg PO DAILY [facility] Last Admin: 12/24/16 08:28 Dose: 50 mg Temazepam (Restoril) 15 mg PO BEDTIME PRN PRN Reason: Sleep Last Admin: 12/23/16 23:05 Dose: 15 mg Discontinued Medications Aspirin (Aspirin) 324 mg PO DAILY [facility] Last Admin: 12/24/16 00:45 Dose: Not Given Aspirin (Ecotrin) 325 mg PO ONETIME ONE Stop: 12/23/16 19:23 Last Admin: 12/23/16 23:12 Dose: Not Given Aspirin (Halfprin) 324 mg PO ONETIME ONE Stop: 12/23/16 22:30 Last Admin: 12/23/16 23:04 Dose: 324 mg Sodium Chloride (Saline Flush) 10 ml FLUSH ASDIRECTED PRN PRN Reason: Keep Vein Open Last Admin: 12/23/16 16:20 Dose: 10 ml - Exam Quality Assessment: DVT prophylaxis General: alert, oriented, cooperative, no acute distress HEENT: Pupils equal, Pupils reactive, EOMI, Mucous membr. moist/pink Neck: supple, no JVD, +2 carotid pulse wo bruit. No: carotid bruit Lungs: Clear to auscultation, Normal respiratory effort, Decreased breath sounds (bases) Cardiovascular: Regular Rate, Regular Rhythm Abdomen: bowel sounds present, soft, no tenderness, no distension (Female) Exam: Deferred Back Exam: Normal Inspection Extremities: no edema, no calf tenderness Peripheral Pulses: 1+: Dorsalis Pedis (L), Dorsalis Pedis (R) Skin: warm, dry, intact Neurological: normal speech, normal tone Psy/Mental Status: alert, normal affect, normal mood, other (pleasantly confused ) - Problem List & Annotations (1) TIA (transient ischemic attack) SNOMED Code(s): 759988686, 212453982 Code(s): G45.9 - TRANSIENT CEREBRAL ISCHEMIC ATTACK, UNSPECIFIED Status: Acute Current Visit: Yes Qualifiers: Transient cerebral ischemia type: unspecified Qualified Code(s): G45.9 - Transient cerebral ischemic attack, unspecified (2) Hyponatremia SNOMED Code(s): 17325594 Code(s): E87.1 - HYPO-OSMOLALITY AND HYPONATREMIA Status: Acute Current Visit: Yes (3) Cognitive impairment SNOMED Code(s): 269229943 Code(s): R41.89 - OTH SYMPTOMS AND SIGNS W COGNITIVE FUNCTIONS AND AWARENESS Status: Chronic Priority: High Current Visit: Yes - Problem List Review Problem List Initiated/Reviewed/Updated: Yes - Plan Plan:: Assessment/Plan: Acute: TIA - Head CT scan - negative for acute intra-cranial abnormality, senescent changes, chronic left cerebellar hemisphere infarct - Risk factors: Previous CVAs/Stroke - EKG: no malignant rhythm; repeat this am with NSR; no calls on tele through the night - Carotids: could not appreciate bruits - B/P's stable - Facial droop resolved now - Not on ASA/Statin, will give 325 po ASA if not gotten any in ED - Brain MRI, Head and /Neck MRA, Carotid Studies, 2D Echo today - Lipid Panel - LDL 134 and A1C - 8.2 Moderate Hyponatremia - NA is 124--> 129 this am - She is euvolemic - She is not on SSRI or HCTZ - Thyroid panel in AM - Serum and Urine Osm - Will start salt tablet TID Mild Leukoctyosis---Resolved - Likely from stress - WBC is 12 - UA is neg and afebrile - Will monitor Chronic: HTN DM2--A1C 8.2 as noted above GERD Gout Vit D deficiency Plan: Admit to the floor with Telemetry Resume Home Meds Routine AM labs Fall/Seizure Precautions PRN Abortive Seizure Med NIH/Neuro Monitoring Qshift PT/OT consult Bedside swallowing study, if okay to start diet AHA and DM diet Accu-check QID AC and Bedtime SW/CM for d/c planning Code status: Full Code: Dr. Zhao had long conversation with family members upon admission and family wants full workup and patient to continue as full code status.
[2016-12-24] MEDS ORDERED: Gadobenate Dimeglumine 529 MG/ML 15 ML SDV IVPUSH ONE (09:25)
--- NOTE | 2016-12-24 09:42 | CT ---
Head CT Technique: Multiple axial sections through the brain were obtained. Intravenous contrast was not utilized. Comparison: No previous intracranial imaging is available. Findings: Old left cerebellar hemisphere infarct is seen. Ventricles along with basal cisterns and sulci over the convexities are mildly prominent. Diminished density noted within portions of the periventricular and subcortical white matter compatible with small vessel ischemic demyelination change. No other abnormal parenchymal densities are seen. No evidence of intracranial hemorrhage. No midline shift or mass effect is seen. Bone window settings were reviewed which show no discrete calvarial abnormality. Visualized sinuses are clear. Impression: 1. Old cerebellar infarct on the left side. Senescent change as described above. 2. Nothing acute is seen on noncontrast head CT exam. Diagnostic code #3 I agree with preliminary report issued by [facility] ([facility] preliminary report dictated on 12/23/16, 5:21 PM Central Time)
[2016-12-24] MEDS ORDERED: Sodium Chloride 0.9% 10 ML SDV FLUSH ONE (09:50)
[2016-12-24] MEDS: Sodium Chloride 0.9% 10 ML Syringe FLUSH PRN (10:20)
--- NOTE | 2016-12-24 11:15 | MR ---
MRI brain Technique: T1 sagittal; T2, T1 and T2 FLAIR axial; diffusion axial; T1 FLAIR coronal images were also obtained through the brain. Comparison: Previous CT exam of 12/23/16. Findings: Ventricles along with basal cisterns and sulci over the convexities are mildly prominent. Sulci over the cerebellum are also mildly prominent. No acute diffusion abnormalities are seen. Old infarct is noted within the left cerebellar hemisphere. Minimal areas of increased signal within the periventricular white matter likely represents minimal small vessel ischemic demyelination change. No other abnormal parenchymal densities are seen. No evidence of midline shift. Normal signal void is seen within the major cerebral arteries within the skull base. Impression: 1. Old left cerebellar infarct. Minimal senescent change. 2. No acute diffusion abnormalities are seen. Diagnostic code #2
--- NOTE | 2016-12-24 11:42 | MR ---
MR angiogram of neck Technique: MR angiogram of the neck was obtained. Intravenous contrast was utilized. Multiple MIP images were obtained. Findings: Common carotid arteries are unremarkable. No significant stenosis seen within the carotid bulb or within the internal carotid arteries. Proximal external carotid arteries appear unremarkable. Both vertebral arteries are patent. Basilar artery is patent. Normal carotid siphon seen. Impression: 1. No abnormality is identified on MR angiogram study of the neck. Diagnostic code #1
[2016-12-24] MEDS ORDERED: 50% Dextrose in Water 50 ML Syringe IVPUSH PRN (11:49)
--- NOTE | 2016-12-24 13:46 | US ---
Carotid ultrasound: Duplex and color flow imaging was obtained of the carotid arteries. Technologist's note: Technically difficult due to patient's labored breathing Mild to moderate amount of plaque identified within the distal common carotid artery, proximal internal and external carotid arteries as well as carotid bulb. No significant plaque appreciated on the right side. Velocity measurements Right side: CCA has a peak systolic velocity of 0.60 m/s. ICA has a peak systolic velocity of 1.26 m/s and peak end-diastolic velocity of 0.13 m/s. ECA has a peak systolic velocity of 0.81 m/s. Vertebral artery has a peak systolic velocity of 0.62 m/s. ICA/CCA ratio is 2.1. Left side: CCA has a peak systolic velocity of 0.78 m/s. ICA has a peak systolic velocity of 0.75 m/s and peak end-diastolic velocity of 0.10 m/s. ECA has a peak systolic velocity of 0.72 m/s. Vertebral artery has a peak systolic velocity of 0.68 m/s. ICA/CCA ratio is 1.0. Impression: 1. Mild to moderate amount of plaque on the left side. Velocity measurements are within normal limits compatible with stenosis in the range of 1-49 percent. 2. Slightly elevated velocity measurement within the right internal carotid artery which is likely artifact as previous MR angiogram shows no significant stenosis. Diagnostic code #2
[2016-12-24] MEDS: Temazepam 15 MG Cap PO PRN (20:19)
--- NOTE | 2016-12-25 07:22 | PCM.DCSUM1 ---
Discharge Summary - Hospital Course Free Text/Narrative:: This is an 89 yo elderly white female with past medical hx/o DM2, HTN, GERD and Vit D Deficiency who comes in with complaints of left sided facial droop and difficulty speaking. Her presenting symptoms were associated with confusion. Patient was last known okay at about 1545. Patient carries hx/o a few/multiple stroke in the past. Upon presentation to ED , appeared he symptoms have completely resolved. No other associated symptoms reported. Her initial work up in ED shows a CBC remarkable for WBC of 12.12 and Neutrophils of 7.48. Her chemistry is significant for Na of 124, Cl 91, BUN of 22, BS of 143. Her INR is 0.92 and Troponin x1 is normal. UA is negative for UTI. Initial EKG shows NSR. Her Head CT scan shows no acute intra-cranial abnormality. Patient is being admitted for TIA and Hyponatremia. She is CPR only Evaluation during her stay revealed essentially negative workup and includes carotid dopplers which were negative, Brain MRI/MRA. Echocardiogram was with EF of 60-65%, grade 1 diastolic filling dysfunction and moderate aortic stenosis. Neurological checks/serial exams were unremarkable aside from baseline dementia. PT/OT worked with her with recommendations for home with family care. She will be discharged home today with family with recommendations for follow up with her PCP within one week of discharge; continue all usual home medications. - Discharge Data Discharge Date: 12/25/16 (admit date 12/23/16) Discharge Disposition: Home, Self-Care 01 Condition: Good - Discharge Diagnosis/Problem(s) (1) TIA (transient ischemic attack) SNOMED Code(s): 933592388, [id number] ICD Code: G45.9 - TRANSIENT CEREBRAL ISCHEMIC ATTACK, UNSPECIFIED Status: Acute Qualifiers: Transient cerebral ischemia type: unspecified Qualified Code(s): G45.9 - Transient cerebral ischemic attack, unspecified (2) Hyponatremia SNOMED Code(s): 47658046 ICD Code: E87.1 - HYPO-OSMOLALITY AND HYPONATREMIA Status: Acute (3) Cognitive impairment SNOMED Code(s): 741548366 ICD Code: R41.89 - OTH SYMPTOMS AND SIGNS W COGNITIVE FUNCTIONS AND AWARENESS Status: Chronic Priority: High - Patient Summary/Data Operative Procedure(s) Performed: None Complications: None Consults: None Labs Pending at D/C: None Recommended Follow-up Testing/Procedures: Follow up with PCP within 1 week of discharge Planned Operative Procedure(s) after DC: None Hospital Course: As above - Patient Instructions Diet: Heart Healthy Diet, Low Sodium, Diabetic Diet Activity: As Tolerated Driving: Do Not Drive Showering/Bathing: May Shower Notify Provider of: Fever, Increased Pain, Nausea and/or Vomiting - Discharge Plan Prescriptions/Med Rec: Magnesium Oxide 400 mg PO DAILY #30 tablet Non-Formulary Medication [NF Drug] 2 tab PO TID #180 each Home Medications: Home Meds Cholecalciferol (Vitamin D3) [Vitamin D3] 1,000 mg PO DAILY 12/17/16 [History] Insulin Glarg,Human.Rec.Analog [LantUS Solostar] 18 unit SQ BEDTIME 12/17/16 [ History] Losartan [Cozaar] 25 mg PO DAILY 12/17/16 [History] Omeprazole 20 mg PO DAILY 12/17/16 [History] SitaGLIPtin [Januvia] 50 mg PO DAILY 12/17/16 [History] metFORMIN [Glucophage] 850 mg PO WITHDINNER 12/17/16 [History] Allopurinol [Zyloprim] 100 mg PO DAILY 12/23/16 [History] Clopidogrel [Plavix] 75 mg PO DAILY 12/23/16 [History] Magnesium Oxide 400 mg PO DAILY #30 tablet 12/25/16 [Rx] Non-Formulary Medication [NF Drug] 2 tab PO TID #180 each 12/25/16 [Rx] Patient Handouts: Hyponatremia, [id number], Transient Ischemic Attack, Easy- to-Read, Clopidogrel tablets Forms: ED Department Discharge Referrals: PCP,Unknown [Ordering Only Provider] - - Discharge Summary/Plan Comment DC Time >30 min.: Yes (40 minutes) - General Info Date of Service: 12/25/16 Admission Dx/Problem (Free Text: TIA Mehreen is seen this morning sitting up in chair. She is about to go to radiology for further studies: MRI/MRA of brain/carotids She is doing well, ate breakfast, denies c/o pain, dizziness, CP, SOB, palpitations or ABRAHAM. States slept well overnight. Functional Status: Reports: pain controlled, tolerating diet, ambulating, urinating - Review of Systems General: Reports: No Symptoms HEENT: Reports: no symptoms Pulmonary: Reports: no symptoms Cardiovascular: Reports: No Symptoms Gastrointestinal: Reports: No symptoms Genitourinary: Reports: no symptoms Musculoskeletal: Reports: no symptoms Neurological: Reports: Confusion (pleasantly confused) Psychiatric: Reports: confusion (pleasantly confused) - Patient Data Vitals - Most Recent: Last Vital Signs Temp 98.1 F 12/25/16 03:59 Pulse 76 12/25/16 03:59 Resp 15 12/25/16 03:59 BP 119/86 12/25/16 03:59 Pulse Ox 100 12/25/16 03:59 Weight - Most Recent: 123 lb 6.4 oz I&O - Last 24 hours: Intake & Output 12/24/16 12/25/16 12/25/16 22:59 06:59 14:59 Intake Total 1080 175 Output Total 600 200 Balance 480 -25 Lab Results - Last 24 hrs: Laboratory Results - last 24 hr 12/24/16 12/24/16 12/24/16 Range/Units 10:38 12:40 13:55 WBC (3.98-10.04) K/mm3 RBC (3.98-5.22) M/mm3 Hgb (11.2-15.7) gm/L Hct (34.1-44.9) % MCV (79.4-94.8) fl MCH (25.6-32.2) pg MCHC (32.2-35.5) g/dl RDW Std Deviation (36.4-46.3) fL Plt Count (182-369) K/mm3 MPV (9.4-12.3) fl Neut % (Auto) (34.0-71.1) % Lymph % (Auto) (19.3-51.7) % [place] % (Auto) (4.7-12.5) % Eos % (Auto) (0.7-5.8) Baso % (Auto) (0.1-1.2) % Neut # (Auto) (1.56-6.13) K/mm3 Lymph # (Auto) (1.18-3.74) K/mm3 [place] # (Auto) (0.24-0.36) K/mm3 Eos # (Auto) (0.04-0.36) K/mm3 Baso # (Auto) (0.01-0.08) K/mm3 Sodium (136-145) mEq/L Potassium (3.5-5.1) mEq/L Chloride (98-107) mEq/L Carbon Dioxide (21-32) mEq/L Anion Gap (5-15) BUN (7-18) mg/dL Creatinine (0.55-1.02) mg/dL Est Cr Clr Drug Dosing mL/min Estimated GFR (MDRD) (>60) mL/min BUN/Creatinine Ratio (14-18) Glucose (83-115) mg/dL POC Glucose 218 H 289 H (83-110) mg/dL Calcium (8.5-10.1) mg/dL Magnesium (1.8-2.4) mg/dl Urine Osmolality 285 L (400-1100) mosm/kg 12/24/16 12/24/16 12/24/16 Range/Units 14:27 16:59 20:19 WBC (3.98-10.04) K/mm3 RBC (3.98-5.22) M/mm3 Hgb (11.2-15.7) gm/L Hct (34.1-44.9) % MCV (79.4-94.8) fl MCH (25.6-32.2) pg MCHC (32.2-35.5) g/dl RDW Std Deviation (36.4-46.3) fL Plt Count (182-369) K/mm3 MPV (9.4-12.3) fl Neut % (Auto) (34.0-71.1) % Lymph % (Auto) (19.3-51.7) % [place] % (Auto) (4.7-12.5) % Eos % (Auto) (0.7-5.8) Baso % (Auto) (0.1-1.2) % Neut # (Auto) (1.56-6.13) K/mm3 Lymph # (Auto) (1.18-3.74) K/mm3 [place] # (Auto) (0.24-0.36) K/mm3 Eos # (Auto) (0.04-0.36) K/mm3 Baso # (Auto) (0.01-0.08) K/mm3 Sodium (136-145) mEq/L Potassium (3.5-5.1) mEq/L Chloride (98-107) mEq/L Carbon Dioxide (21-32) mEq/L Anion Gap (5-15) BUN (7-18) mg/dL Creatinine (0.55-1.02) mg/dL Est Cr Clr Drug Dosing mL/min Estimated GFR (MDRD) (>60) mL/min BUN/Creatinine Ratio (14-18) Glucose (83-115) mg/dL POC Glucose 185 H 233 H 135 H (83-110) mg/dL Calcium (8.5-10.1) mg/dL Magnesium (1.8-2.4) mg/dl Urine Osmolality (400-1100) mosm/kg 12/25/16 12/25/16 12/25/16 Range/Units 05:21 05:21 06:35 WBC 9.08 (3.98-10.04) K/mm3 RBC 4.29 (3.98-5.22) M/mm3 Hgb 12.4 (11.2-15.7) gm/L Hct 36.8 (34.1-44.9) % MCV 85.8 (79.4-94.8) fl MCH 28.9 (25.6-32.2) pg MCHC 33.7 (32.2-35.5) g/dl RDW Std Deviation 41.3 (36.4-46.3) fL Plt Count 318 (182-369) K/mm3 MPV 9.6 (9.4-12.3) fl Neut % (Auto) 61.1 (34.0-71.1) % Lymph % (Auto) 26.3 (19.3-51.7) % [place] % (Auto) 8.8 (4.7-12.5) % Eos % (Auto) 3.2 (0.7-5.8) Baso % (Auto) 0.3 (0.1-1.2) % Neut # (Auto) 5.54 (1.56-6.13) K/mm3 Lymph # (Auto) 2.39 (1.18-3.74) K/mm3 [place] # (Auto) 0.80 H (0.24-0.36) K/mm3 Eos # (Auto) 0.29 (0.04-0.36) K/mm3 Baso # (Auto) 0.03 (0.01-0.08) K/mm3 Sodium 133 L (136-145) mEq/L Potassium 4.9 (3.5-5.1) mEq/L Chloride 99 (98-107) mEq/L Carbon Dioxide 24 (21-32) mEq/L Anion Gap 14.9 (5-15) BUN 18 (7-18) mg/dL Creatinine 1.1 H (0.55-1.02) mg/dL Est Cr Clr Drug Dosing 27.42 mL/min Estimated GFR (MDRD) 47 (>60) mL/min BUN/Creatinine Ratio 16.4 (14-18) Glucose 164 H (83-115) mg/dL POC Glucose 169 H (83-110) mg/dL Calcium 9.0 (8.5-10.1) mg/dL Magnesium 1.7 L (1.8-2.4) mg/dl Urine Osmolality (400-1100) mosm/kg Med Orders - Current: Current Medications Acetaminophen (Tylenol) 650 mg PO Q4H PRN PRN Reason: Pain (Mild 1-3)/fever Hydrocodone Bitart/Acetaminophen (Cecil 325-5 Mg) 1 tab PO Q4H PRN PRN Reason: Pain (moderate 4-6) Last Admin: 12/23/16 23:05 Dose: 1 tab Albuterol (Proventil Neb Soln) 2.5 mg NEB Q2H PRN PRN Reason: Shortness Of Breath/wheezing Allopurinol (Zyloprim) 100 mg PO DAILY [facility] Last Admin: 12/24/16 08:28 Dose: 100 mg Bisacodyl (Dulcolax) 5 mg PO DAILY PRN PRN Reason: Constipation Cholecalciferol (Vitamin D3) 1,000 units PO DAILY [facility] Last Admin: 12/24/16 08:28 Dose: 1,000 units Clopidogrel Bisulfate (Plavix) 75 mg PO DAILY [facility] Last Admin: 12/24/16 08:28 Dose: 75 mg Dextrose/Water (Dextrose 50% In Water) 50 ml IVPUSH ASDIRECTED PRN PRN Reason: Hypoglycemia Docusate Sodium (Colace) 100 mg PO BID PRN PRN Reason: Constipation Hydromorphone HCl (Dilaudid) 0.25 mg IVPUSH Q2H PRN PRN Reason: Pain (severe 7-10) Promethazine HCl 12.5 mg/ (Sodium Chloride) 50.5 mls @ 100 mls/hr IV Q6H PRN PRN Reason: Nausea/Vomiting Insulin Detemir (Levemir) 9 unit SUBCUT BID [facility] Last Admin: 12/24/16 20:19 Dose: 9 units Lorazepam (Ativan) 0.25 mg IV Q6H PRN PRN Reason: Anxiety Losartan Potassium (Cozaar) 25 mg PO DAILY [facility] Last Admin: 12/24/16 08:29 Dose: 25 mg Magnesium Oxide (Magnesium Oxide) 400 mg PO DAILY [facility] Metformin HCl (Glucophage) 850 mg PO WITHDINNER [facility] Last Admin: 12/24/16 16:58 Dose: 850 mg Ondansetron HCl (Zofran) 4 mg IV Q6H PRN PRN Reason: Nausea/Vomiting Oral Electrolytes (Thermotabs) 2 each PO TID [facility] Last Admin: 12/24/16 20:19 Dose: 2 each Pantoprazole Sodium (Protonix) 40 mg PO DAILY [facility] Last Admin: 12/24/16 08:28 Dose: 40 mg Polyethylene Glycol (Miralax) 17 gm PO DAILY PRN PRN Reason: Constipation Senna/Docusate Sodium (Senna Plus) 1 tab PO BID PRN PRN Reason: Constipation Sitagliptin Phosphate (Januvia) 50 mg PO DAILY [facility] Last Admin: 12/24/16 08:28 Dose: 50 mg Temazepam (Restoril) 15 mg PO BEDTIME PRN PRN Reason: Sleep Last Admin: 12/24/16 20:19 Dose: 15 mg Discontinued Medications Aspirin (Aspirin) 324 mg PO DAILY [facility] Last Admin: 12/24/16 00:45 Dose: Not Given Aspirin (Ecotrin) 325 mg PO ONETIME ONE Stop: 12/23/16 19:23 Last Admin: 12/23/16 23:12 Dose: Not Given Aspirin (Halfprin) 324 mg PO ONETIME ONE Stop: 12/23/16 22:30 Last Admin: 12/23/16 23:04 Dose: 324 mg Gadobenate Dimeglumine (Multihance) 15 ml IVPUSH ONETIME ONE Stop: 12/24/16 09:26 Last Admin: 12/24/16 10:20 Dose: 15 ml Magnesium Sulfate 2 gm/ Premix 50 mls @ 25 mls/hr IV ONETIME ONE Stop: 12/24/16 09:45 Last Admin: 12/24/16 08:34 Dose: 25 mls/hr Sodium Chloride (Saline Flush) 10 ml FLUSH ASDIRECTED PRN PRN Reason: Keep Vein Open Last Admin: 12/24/16 10:20 Dose: 10 ml Sodium Chloride (Normal Saline) 20 ml FLUSH ONETIME ONE Stop: 12/24/16 09:51 Last Admin: 12/24/16 12:42 Dose: 20 ml - Exam Quality Assessment: Reports: DVT prophylaxis General: Reports: alert, cooperative, no acute distress HEENT: Reports: Pupils equal, Pupils reactive, EOMI, Mucous membr. moist/pink Neck: Reports: supple Lungs: Reports: Clear to auscultation, Normal respiratory effort Abdomen: Reports: bowel sounds present, soft, no tenderness, no distension (Female) Exam: Deferred Rectal (Female) Exam: Deferred Back Exam: Reports: Normal Inspection Extremities: Reports: no edema, no calf tenderness Neurological: Reports: normal speech, normal tone Psy/Mental Status: Reports: alert, normal affect, normal mood, other ( pleasantly confused) *Q Meaningful Use (DIS) - VTE *Q VTE Criteria *Q: - Stroke *Q Stroke Criteria *Q: - AMI *Q AMI Criteria *Q:
[2016-12-25] MEDS: Insulin Detemir 100 Units/ML 3 ML Pen SUBCUT SCH (08:55)
[2016-12-25] MEDS: Losartan 25 MG Tab PO SCH (08:58)
[2016-12-25] MEDS: Potassium Chloride/Sodium Chloride Tab PO SCH (08:59)
[2016-12-25] MEDS: Clopidogrel 75 MG Tab PO SCH (08:59)
[2016-12-25] MEDS: Pantoprazole 40 MG Tab.CR PO SCH (08:59)
[2016-12-25] MEDS ORDERED: Magnesium Oxide 400 MG Tab PO SCH (09:00)
[2016-12-25] MEDS: Allopurinol 100 MG Tab PO SCH (09:00)
[2016-12-25] MEDS: Cholecalciferol (Vitamin D3) 1,000 Unit Tab PO SCH (09:00)
[2016-12-25 15:58] VITALS: BP 151/86
== END 2016-12-25 13:45 | disposition home or self-care (01) | DRG 69 ==
LOC: JD.ED 15:53 → JD.MS 20:17
PROVIDERS: ADMIT Internal Medicine; ATTEND Internal Medicine
DX: G45.9 Transient cerebral ischemic attack, unspecified (principal); E87.1 Hypo-osmolality and hyponatremia; D72.829 Elevated white blood cell count, unspecified; I10 Essential (primary) hypertension; E11.9 Type 2 diabetes mellitus without complications; Z79.4 Long term (current) use of insulin; Z79.84 Long term (current) use of oral hypoglycemic drugs; K21.9 Gastro-esophageal reflux disease without esophagitis; E55.9 Vitamin D deficiency, unspecified; Z86.73 Personal history of transient ischemic attack (TIA), and cerebral infarction without residual deficits; M10.9 Gout, unspecified; R41.89 Other symptoms and signs involving cognitive functions and awareness; Z85.528 Personal history of other malignant neoplasm of kidney; Z90.5 Acquired absence of kidney; Z79.899 Other long term (current) drug therapy; Z88.0 Allergy status to penicillin
CPT/HCPCS: 36415; 70450; 80053; 81001; 83036; 84484; 85025; 85610; 85730; 93005; 99285; J7050; 70548; 70548-26; 70553; 70553-26; 80048; 80061; 82962; 83735; 83930; 83935; 84439; 84443; 93306; 93880; 93880-26; 97110-GO; 97116-GP; 97161-GP; 97166-GO; 97530-GO; 97535-GO; 99239; A9270-GY; A9577; J1815-GY; J3475

== ENCOUNTER 2017-01-19 11:24 | Emergency (ER) | payer MEDICARE, MEDICAID ==
--- NOTE | 2017-01-19 11:49 | EDM.PDOC ---
ED HPI GENERAL MEDICAL PROBLEM - General Chief Complaint: Gastrointestinal Problem Stated Complaint: [facility] Time Seen by Provider: 01/19/17 11:24 Source of Information: Reports: Patient, EMS History Limitations: Reports: No Limitations - History of Present Illness INITIAL COMMENTS - FREE TEXT/NARRATIVE: 89-year-old female presents via [facility] for evaluation treatment of constipation. Patient is complaining of pain to her rectal area. Reports that she has not had a bowel movement in 2 weeks. Patient reports pain to the rectal area and the urged to defecate. She has been taking [id number] MiraLAX but has not done any symptom relief. She reports some slight abdominal discomfort. She denies any fevers, nausea, vomiting, melena or hematochezia. Review of chart shows previous abdominal surgeries of an appendectomy and a hysterectomy. Rectal Pain Score (Numeric/FACES): 7 - Related Data Allergies Allergy/AdvReac Type Severity Reaction Status Date / Time Penicillins Allergy Rash Verified 01/19/17 11:30 Home Meds: Home Meds Cholecalciferol (Vitamin D3) [Vitamin D3] 1,000 mg PO DAILY 12/17/16 [History] Insulin Glarg,Human.Rec.Analog [LantUS Solostar] 18 unit SQ BEDTIME 12/17/16 [ History] Losartan [Cozaar] 25 mg PO DAILY 12/17/16 [History] Omeprazole 20 mg PO DAILY 12/17/16 [History] SitaGLIPtin [Januvia] 50 mg PO DAILY 12/17/16 [History] metFORMIN [Glucophage] 750 mg PO WITHDINNER 12/17/16 [History] Clopidogrel [Plavix] 75 mg PO DAILY 12/23/16 [History] Past Medical History HEENT History: Reports: Hard of Hearing Cardiovascular History: Reports: Hypertension, [place] Other Cardiovascular History: Myocardial Bridge Respiratory History: Reports: None Gastrointestinal History: Reports: Helicobacter Pylori Genitourinary History: Reports: Other (See Below) Other Genitourinary History: 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 [employer] History: Reports: Musculoskeletal History: Reports: Arthritis Other Musculoskeletal History: currently left knee swollen and painful pt states is arthritis Neurological History: Reports: CVA Other Neuro History: 12/23 admitted for TIA Endocrine/Metabolic History: Reports: Diabetes, Type II - Infectious Disease History Infectious Disease History: Reports: Helicobacter Pylori, Influenza - Past Surgical History HEENT Surgical History: Reports: None Respiratory Surgical History: Reports: None GI Surgical History: Reports: Appendectomy Female Surgical History: Reports: Hysterectomy, Ureteral Stent Other Female Surgeries/Procedures: 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 Musculoskeletal Surgical History: Reports: None, Amputation Social & Family History - Family History Family Medical History: Noncontributory - Tobacco Use Smoking Status *Q: Never Smoker Second Hand Smoke Exposure: No - Caffeine Use Caffeine Use: Reports: None - Recreational Drug Use Recreational Drug Use: No ED ROS GENERAL - Review of Systems Review Of Systems: See Below Constitutional: Denies: Fever GI/Abdominal: Reports: Abdominal Pain, Constipation, Other (reports rectal pain and the urge to deficate). Denies: Hematochezia, Melena, Nausea, Vomiting : Reports: No Symptoms. Denies: Dysuria ED EXAM, GI/ABD - Physical Exam Exam: See Below Exam Limited By: No Limitations General Appearance: Alert, WD/WN, No Apparent Distress Respiratory/Chest: No Respiratory Distress, Lungs Clear, Normal Breath Sounds Cardiovascular: Normal Peripheral Pulses, Regular Rate, Rhythm, No Murmur GI/Abdominal: Normal Bowel Sounds, Soft, Non-Tender, Distention Neurological: Alert, Oriented, Normal Cognition Psychiatric: Normal Affect, Normal Mood Skin Exam: Warm, Dry, Normal Color Course - Vital Signs Last Recorded V/S: Last Vital Signs Temp 36.5 C 01/19/17 11:31 Pulse 77 01/19/17 14:30 Resp 18 01/19/17 14:30 BP 151/52 H 01/19/17 14:30 Pulse Ox 100 01/19/17 14:30 - Orders/Labs/Meds Labs: Laboratory Tests 01/19/17 01/19/17 01/19/17 Range/Units 11:55 11:55 12:25 WBC 14.85 H (3.98-10.04) K/mm3 RBC 4.36 (3.98-5.22) M/mm3 Hgb 12.4 (11.2-15.7) gm/L Hct 36.5 (34.1-44.9) % MCV 83.7 (79.4-94.8) fl MCH 28.4 (25.6-32.2) pg MCHC 34.0 (32.2-35.5) g/dl RDW Std Deviation 39.1 (36.4-46.3) fL Plt Count 343 (182-369) K/mm3 MPV 9.3 L (9.4-12.3) fl Neut % (Auto) 74.2 H (34.0-71.1) % Lymph % (Auto) 17.8 L (19.3-51.7) % [place] % (Auto) 5.9 (4.7-12.5) % Eos % (Auto) 1.3 (0.7-5.8) Baso % (Auto) 0.3 (0.1-1.2) % Neut # (Auto) 11.01 H (1.56-6.13) K/mm3 Lymph # (Auto) 2.65 (1.18-3.74) K/mm3 [place] # (Auto) 0.88 H (0.24-0.36) K/mm3 Eos # (Auto) 0.19 (0.04-0.36) K/mm3 Baso # (Auto) 0.04 (0.01-0.08) K/mm3 Sodium 131 L (136-145) mEq/L Potassium 4.7 (3.5-5.1) mEq/L Chloride 96 L (98-107) mEq/L Carbon Dioxide 27 (21-32) mEq/L Anion Gap 12.7 (5-15) BUN 20 H (7-18) mg/dL Creatinine 0.9 (0.55-1.02) mg/dL Est Cr Clr Drug Dosing 33.52 mL/min Estimated GFR (MDRD) 59 (>60) mL/min BUN/Creatinine Ratio 22.2 H (14-18) Glucose 172 H (83-115) mg/dL Calcium 9.6 (8.5-10.1) mg/dL Total Bilirubin 0.4 (0.2-1.0) mg/dL AST 21 (15-37) U/L ALT 28 (14-59) U/L Alkaline Phosphatase 111 (46-116) U/L Total Protein 7.4 (6.4-8.2) g/dl Albumin 3.2 L (3.4-5.0) g/dl Globulin 4.2 gm/dL Albumin/Globulin Ratio 0.8 L (1-2) Urine Color Yellow (Yellow) Urine Appearance Clear (Clear) Urine pH 6.0 (5.0-8.0) Ur Specific [place] 1.015 (1.005-1.030) Urine Protein Negative (Negative) Urine Glucose (UA) Negative (Negative) Urine Ketones Negative (Negative) Urine Occult Blood Negative (Negative) Urine Nitrite Negative (Negative) Urine Bilirubin Negative (Negative) Urine Urobilinogen 1.0 (0.2-1.0) Ur Leukocyte Esterase Trace H (Negative) Urine RBC Not seen (0-5) /hpf Urine WBC 5-10 H (0-5) /hpf Ur Epithelial Cells Not Reportable Ur Squamous Epith Cells 0-5 (0-5) /hpf Urine Bacteria Not seen (FEW) /hpf Urine Mucus Few (FEW) /hpf Meds: Medications Discontinued Medications Generic Name Dose Route Start Last Admin Trade Name Freq PRN Reason Stop Dose Admin Magnesium Citrate 150 ml 01/19/17 13:43 01/19/17 14:14 Citrate Of Magnesia PO 01/19/17 13:44 150 ml ONETIME ONE Administration - Radiology Interpretation Free Text/Narrative:: flat and upright shows extensive constipation to the left colon and rectum. Extensive vascular calcification. Incidental surgical clips. - Re-Assessments/Exams Free Text/Narrative Re-Assessment/Exam: 01/19/17 12:53 SHEILA Malcolm was able to disimpact the rectum with digital removal. Patient had a large amount of stool in the rectum that was easily accessible. Soapsuds enema ordered to help further in the stool. 01/19/17 14:10 Patient was not able to retain much of the soapsuds enema. We will try a fleets mineral oil enema for further relief. Labs returned White blood cell count 14.85, hemoglobin 12.4 and platelets 343. Sodium 131, potassium 4.7 and chloride 96. Anion gap 12.7. Glucose 172. UA shows trace leukocytes. I reviewed the labs and imaging with the patient. 01/19/17 15:34 Patient is feeling much better after having 3 large and a medium bowel movement in the ER. She is now having mostly liquid stools. Will discharge home at this time. Departure - Departure Time of Disposition: 15:36 Disposition: Home, Self-Care 01 Condition: Good Clinical Impression: Constipation - Discharge Information Instructions: Constipation, Adult, [id number] Referrals: PCP,Not In Area [Primary Care Provider] - Forms: ED Department Discharge Additional Instructions: Make sure you are drinking fluids. Miralax daily to prevent constipation. Mag citrate, 1/2 the bottle, if you go more than 3 days without a bowel movement. If you become severely impacted again you may attempt to remove stool with manual digital removal. Follow-up with PCP this week. Please return to the ER should your symptoms change or worsen.
[2017-01-19] MEDS ORDERED: Magnesium Citrate Solution 296 ML Bottle PO ONE (13:43)
[2017-01-19 16:20] VITALS: BP 151/52
--- NOTE | 2017-01-21 14:38 | CR ---
Abdomen: Supine and upright views of the abdomen were obtained. Comparison: No previous study. Surgical clips are seen within the left upper abdomen. Bowel gas pattern is unremarkable. Slight calcification is seen off the spine with fusion to the left iliac crest which is normal variant. Extensive vascular calcification is noted. No free air is seen. Impression: 1. Incidental findings. Diagnostic code #2
== END 2017-01-19 16:05 | disposition home or self-care (01) ==
LOC: JD.ED 11:24
DX: K59.00 Constipation, unspecified (principal); I25.2 Old myocardial infarction; E11.9 Type 2 diabetes mellitus without complications; I10 Essential (primary) hypertension; Z90.49 Acquired absence of other specified parts of digestive tract; Z90.710 Acquired absence of both cervix and uterus; Z79.84 Long term (current) use of oral hypoglycemic drugs; Z79.4 Long term (current) use of insulin; Z79.899 Other long term (current) drug therapy; Z88.0 Allergy status to penicillin; Z86.73 Personal history of transient ischemic attack (TIA), and cerebral infarction without residual deficits
CPT/HCPCS: 36415; 74020; 80053; 81001; 85025; 99284; A9270; P9612; 99283